=== PATIENT | male | born 1940 | race Caucasian/White ===

== ENCOUNTER 2019-12-24 20:59 | Inpatient (IN) | payer MEDICARE, BC ==
--- NOTE | 2019-12-24 22:36 | ER Document Report ---
ED Medical Screen (RME) - General Chief Complaint: Fall Injury Stated Complaint: FALL/WEAKNESS Time Seen by Provider: 12/24/19 22:27 Primary Care Provider: JIM BOYCE MD [Primary Care Provider] - Follow up as needed Mode of Arrival: Wheelchair Information source: Patient, Relative Notes: HPI; 79-year-old male presents to the emergency room with his daughter who s tates that patient had a trip and fall at home 6 days ago hitting his head. Daughter states he laid on the floor for several hours before anybody found him. Normally lives alone but states he has been unable to care for him self since the fall. Is weak. Complains of generalized fatigue. States saw primary care physician 2 days ago had COVID testing and labs. States cover testing is still pending. States a CT head was ordered but was told he cannot get 1 for at least a week. There has been no recent travel. No COVID-19 exposure. PE: Alert and oriented x3. Pale appearing. Mild distress noted. Lungs were clear to auscultation without rales, rhonchi, wheezes. Heart: Tachycardic without murmurs rubs or gallops. Unable to do full exam in triage. I have greeted and performed a rapid initial assessment of this patient. A comprehensive ED assessment and evaluation of the patient, analysis of test results and completion of the medical decision making process will be conducted by additional ED providers. I have specifically instructed the patient or family members with the patient to immediately return to any nursing staff should anything change in the patient's condition or with their chief complaint. TRAVEL OUTSIDE OF THE [place] IN LAST 30 DAYS: No - Related Data Allergies/Adverse Reactions: No Known Allergies Allergy (Unverified 05/12/13 13:03) Past Medical History - Past Medical History Cardiac Medical History: Reports: Hx Hypertension Denies: Hx Heart Attack Pulmonary Medical History: Denies: Hx Asthma Neurological Medical History: Denies: Hx Cerebrovascular Accident, Hx Seizures GI Medical History: Denies: Hx Hepatitis, Hx Hiatal Hernia, Hx Ulcer Infectious Medical History: Denies: Hx Hepatitis Past Surgical History: Denies: Hx Open Heart Surgery, Hx Pacemaker Physical Exam - Vital signs Vitals: Temp Pulse Resp BP Pulse Ox 99.2 F 114 H 16 117/66 94 12/24/19 21:31 12/24/19 21:31 12/24/19 21:31 12/24/19 21:31 12/24/19 21:31 Course - Vital Signs Vital signs: Temp Pulse Resp BP Pulse Ox 99.2 F 114 H 16 117/66 94 12/24/19 21:31 12/24/19 21:31 12/24/19 21:31 12/24/19 21:31 12/24/19 21:31 Doctor's Discharge - Discharge Referrals: JIM BOYCE MD [Primary Care Provider] - Follow up as needed
[2019-12-25 01:30] LABS: HEMATOCRIT 43.4 % (37.9-51.0); HEMOGLOBIN 15.2 g/dL (13.5-17.0); MEAN CORPUSCULAR HEMOGLOBIN 29.8 pg (27.0-33.4); MEAN CORPUSCULAR HGB CONC 35.1 g/dL (32.0-36.0); MEAN CORPUSCULAR VOLUME 85 fl (80-97); PLATELET COUNT 267 10^3/uL (150-450); RED BLOOD COUNT 5.11 10^6/uL (4.35-5.55); RED CELL DISTRIBUTION WIDTH 13.5 % (11.5-14.0); WHITE BLOOD COUNT 7.8 10^3/uL (4.0-10.5)
[2019-12-25 01:44] LABS: APPEARANCE,URINE SLIGHTLY-CLOUDY; BILIRUBIN,URINE NEGATIVE (NEGATIVE); COLOR,URINE AMBER; GLUCOSE, URINE NEGATIVE (NEGATIVE); KETONES,URINE 20 mg/dL (NEGATIVE); LEUKOCYTE ESTERASE,URINE NEGATIVE (NEGATIVE); NITRITE,URINE NEGATIVE (NEGATIVE); PROTEIN,URINE 30 mg/dL (NEGATIVE); URINE SPECIFIC GRAVITY 1.025; UROBILINOGEN,URINE NEGATIVE mg/dL (<2.0)
[2019-12-25 01:51] LABS: ALBUMIN 3.8 g/dL (3.5-5.0); ALKALINE PHOSPHATASE 57 U/L (38-126); ANION GAP 11 (5-19); ASPARTATE AMINO TRANSFERASE 51 U/L (17-59); BILIRUBIN,TOTAL 0.7 mg/dL (0.2-1.3); BLOOD UREA NITROGEN 19 mg/dL (7-20); CALCIUM 8.8 mg/dL (8.4-10.2); CARBON DIOXIDE 24 mmol/L (22-30); CHLORIDE 98 mmol/L (98-107); GLUCOSE 170 mg/dL (75-110); POTASSIUM 4.3 mmol/L (3.6-5.0); TOTAL PROTEIN 6.9 g/dL (6.3-8.2)
[2019-12-25 02:01] LABS: ABSOLUTE LYMPHOCYTES# (MANUAL) 0.9 10^3/uL (0.5-4.7); ABSOLUTE MONOCYTES # (MANUAL) 0.3 10^3/uL (0.1-1.4); BAND NEUTROPHILS % (MANUAL) 3 % (3-5); BASOPHILS % (MANUAL) 0 % (0-2); EOSINOPHILS % (MANUAL) 0 % (0-6); LYMPHOCYTES % (MANUAL) 11 % (13-45); MONOCYTES % (MANUAL) 4 % (3-13); SEGMENTED NEUTROPHILS % (MAN) 81 % (42-78); TOTAL CELLS COUNTED 100
[2019-12-25 02:04] LABS: PLATELET COMMENT ADEQUATE
--- NOTE | 2019-12-25 02:41 | RADIOLOGY REPORT (SQ) ---
CLINICAL HISTORY: head trauma. fell last Saturday COMPARISON: None. TECHNIQUE: CT HEAD WITHOUT IV CONTRAST on 12/25/2019 12:00 AM CDT This exam was performed according to our departmental dose-optimization program, which includes automated exposure control, adjustment of the mA and/or kV according to patient size and/or use of iterative reconstruction technique. FINDINGS: There is no acute hemorrhage, mass effect or midline shift. Bey-white differentiation is preserved. There is no hydrocephalus. There is no significant volume loss for age. The calvarium is intact. Orbits and globes are unremarkable. The paranasal sinuses are clear. Mastoid air cells are clear. IMPRESSION: No acute intracranial findings.
--- NOTE | 2019-12-25 02:43 | RADIOLOGY REPORT (SQ) ---
CLINICAL HISTORY: head trauma. fell last Saturday COMPARISON: None. TECHNIQUE: CT CERVICAL SPINE WITHOUT IV CONTRAST on 12/25/2019 12:00 AM CDT This exam was performed according to our departmental dose-optimization program, which includes automated exposure control, adjustment of the mA and/or kV according to patient size and/or use of iterative reconstruction technique. FINDINGS: There is no acute fracture. There is grade 1 anterolisthesis of C4 on C5. There is grade 1 anterolisthesis of C7 on T1. There is moderate right-sided and severe left-sided facet arthritis. There is moderate narrowing of the C3-4 disc. There is severe narrowing of the C5-6 and C6-7 discs. Vertebral body heights are preserved. Soft tissues are unremarkable. IMPRESSION: No acute fracture or subluxation.
[2019-12-25] MEDS ORDERED: NORMAL SALINE 1000 ML 1,000 ML IV ONE (05:04)
--- NOTE | 2019-12-25 05:07 | ER Document Report ---
ED General - General Chief Complaint: Fall Stated Complaint: FALL/WEAKNESS Time Seen by Provider: 12/24/19 22:27 Primary Care Provider: JIM BOYCE MD [NO LOCAL MD] - Follow up as needed Mode of Arrival: Wheelchair Notes: Patient is an 79-year-old male who comes emergency department for chief complaint of generalized weakness and a fall. Patient actually fell at home 6 days ago, he was on the floor several hours because of the spine itself before he was found. Daughter is with patient now, she states she has been staying with family, she states that tonight he was so weak he could not get up off the toilet. She states normally he ambulates around, lives by himself, drives, and goes to work. She states that she went to primary care with him 2 days ago, he did have COVID testing and labs because of generalized weakness, COVID testing is still pending, however he has not had any fever, cough, vomiting, or sick exposures. Patient is not immunocompromised although he does have a history of rheumatoid arthritis, he is on no treatment for this. Remaining medical history includes type 2 diabetes, hyperlipidemia, BPH status post surgery, GERD. No other medical history reported. Daughter states that primary care ordered a CAT scan of the head after his fall but that is not for approximately 1 week. Patient denies any current complaints other than generalized weakness and right knee pain after the fall. He denies headache, chest pain, shortness of breath, abdominal pain, dizziness. TRAVEL OUTSIDE OF THE [place] IN LAST 30 DAYS: No - Related Data Allergies/Adverse Reactions: No Known Allergies Allergy (Unverified 05/12/13 13:03) Past Medical History - General Information source: Patient, Relative - Social History Smoking Status: Never Smoker Frequency of alcohol use: None Lives with: Alone Family History: Reviewed & Not Pertinent Patient has homicidal ideation: No - Past Medical History Cardiac Medical History: Reports: Hx Hypertension Denies: Hx Heart Attack Pulmonary Medical History: Denies: Hx Asthma Neurological Medical History: Denies: Hx Cerebrovascular Accident, Hx Seizures Endocrine Medical History: Reports: Hx Diabetes Mellitus Type 2 GI Medical History: Reports: Hx Gastroesophageal Reflux Disease. Denies: Hx Hepatitis, Hx Hiatal Hernia, Hx Ulcer Infectious Medical History: Denies: Hx Hepatitis Past Surgical History: Denies: Hx Open Heart Surgery, Hx Pacemaker - Immunizations Hx Diphtheria, Pertussis, Tetanus Vaccination: Yes Review of Systems - Review of Systems Constitutional: See HPI EENT: No symptoms reported Cardiovascular: No symptoms reported Respiratory: No symptoms reported Gastrointestinal: No symptoms reported Genitourinary: No symptoms reported Male Genitourinary: No symptoms reported Musculoskeletal: See HPI Skin: No symptoms reported Hematologic/Lymphatic: No symptoms reported Neurological/Psychological: See HPI Physical Exam - Vital signs Vitals: Temp Pulse Resp BP Pulse Ox 99.2 F 114 H 16 117/66 94 12/24/19 21:12/24/19 21:31 12/24/19 21:31 12/24/19 21:12/24/19 21:31 - Notes Notes: GENERAL: Alert but slightly sluggish. Patient speaks in a whisper. HEAD: Normocephalic, atraumatic. EYES: Pupils equal, round, and reactive to light. Extraocular movements intact. ENT: Oral mucosa moist, tongue midline. Oropharynx unremarkable. Airway patent. NECK: Full range of motion. Supple. Trachea midline. No lymphadenopathy. LUNGS: Clear to auscultation bilaterally, no wheezes, rales, or rhonchi. No respiratory distress. Non-tender chest wall. HEART: Regular rate and rhythm. No murmur ABDOMEN: Soft, non-tender. Non-distended. Bowel sounds present in all 4 quadrants. GENITOURINARY: Deferred EXTREMITIES: Tender over the right knee anteriorly although range of motion is intact and there is no sign of trauma. Unremarkable otherwise. BACK: No signs of trauma. No cervical, thoracic, lumbar midline tenderness. No saddle anesthesia, normal distal neurovascular exam. Moves all extremities in full range of motion. NEUROLOGICAL: Alert and oriented x3. Normal speech. Cranial nerves II through XII grossly intact. Strength 5/5 in all extremities. PSYCH: Normal affect, normal mood. SKIN: Warm, dry, normal turgor. No rashes or lesions noted. Course - Re-evaluation Re-evalutation: Patient had delayed extensively due to lack of beds, patient was in a recliner upfront because he could not tolerate the chair and he has a lot of difficulty standing. However he does not have any complaints other than generalized weakness. He has no neurological deficits on my exam. Patient was noted to have hypoxia down to 91% consistently on monitoring in the room, he was placed on 2 L nasal cannula, this did increase to 95% on room air. He has no cough, lungs are clear, he does have tenderness over the right knee and an x-ray was performed this but shows no acute findings. Remaining work-up from triage reviewed including CBC, chemistry, troponin, urinalysis. Patient has been given IV fluids. CT of the head unremarkable. Chest x-ray shows suspected left basilar pneumonia. This is consistent with patient's abnormal weakness, hypoxia. Discussed with patient and daughter, patient will be discussed with hospitalist for admission. They state appreciation and agreement. Patient will be tested for COVID-19. Discussed with Kalina Tran NP, patient excepted to medical floor observation at this time. 12/25/19 07:50 Kathe, nursing toilet and laundry soap supervisor, contact me and stated patient had been tested at [facility] and those testing to be checked first, I did inform nursing staff - Vital Signs Vital signs: Temp Pulse Resp BP Pulse Ox 98.4 F 76 16 140/72 H 97 12/25/19 02:29 12/25/19 02:29 12/25/19 02:29 12/25/19 02:29 12/25/19 02:29 - Laboratory Result Diagrams: 12/25/19 01:12 12/25/19 01:12 Laboratory results interpreted by me: 12/25/19 12/25/19 12/25/19 01:04 01:12 01:12 Seg Neuts % (Manual) 81 H Lymphocytes % (Manual) 11 L Sodium 133.0 L Glucose 170 H Creatine Kinase Urine Protein 30 H Urine Ketones 20 H Urine Ascorbic Acid 40 H 12/25/19 01:12 Seg Neuts % (Manual) Lymphocytes % (Manual) Sodium Glucose Creatine Kinase 39 L Urine Protein Urine Ketones Urine Ascorbic Acid Discharge - Discharge Clinical Impression: Hypoxia, Weakness Pneumonia Qualifiers: Pneumonia type: due to unspecified organism Laterality: left Lung location: lower lobe of lung Qualified Code(s): J18.9 - Pneumonia, unspecified organism Condition: Stable Disposition: ADMITTED OBSERVATION Admitting Provider: Irina (Hospitalist) - Kalina Tran DETECTIVE INVESTIGATOR Unit Admitted: Medical Floor Referrals: JIM BOYCE MD [NO LOCAL MD] - Follow up as needed
[2019-12-25 05:32] LABS: VENOUS BLOOD BASE EXCESS -1.3 mmol/L; VENOUS BLOOD HCO3 23.3 mmol/L (20-32); VENOUS BLOOD PCO2 38.9 mmHg (35-63); VENOUS BLOOD PH 7.4 (7.30-7.42)
--- NOTE | 2019-12-25 06:33 | RADIOLOGY REPORT (SQ) ---
EXAM DESCRIPTION: XR KNEE 4 OR MORE VIEWS COMPLETED DATE/TME: 12/25/2019 05:04 CLINICAL HISTORY: 79 years, Male, fall, pain COMPARISON: None. NUMBER OF VIEWS: 4 TECHNIQUE: 4 views of the right knee LIMITATIONS: None. FINDINGS: Osteopenia. Negative for acute fracture or dislocation. No evidence for joint effusion. Moderate tricompartmental degenerative change IMPRESSION: Osteopenia with moderate tricompartmental degenerative change copyright 2010 [employer]- All Rights Reserved
--- NOTE | 2019-12-25 07:13 | RADIOLOGY REPORT (SQ) ---
CLINICAL HISTORY: weakness COMPARISON: None. TECHNIQUE: XR CHEST 1 VIEW 12/25/2019 4:54 AM CDT FINDINGS: Cardiac silhouette is normal in size. Difficult to exclude small left lower lobe consolidation. There is a trace left pleural effusion. There is no pneumothorax. There are no acute osseous findings. IMPRESSION: Difficult to exclude left basilar pneumonia.
[2019-12-25] MEDS ORDERED: CEFTRIAXONE 1 GM/D5W RTU 1 GM/50 ML RTUPB IV ONE (07:18)
[2019-12-25] MEDS ORDERED: AZITHROMYCIN INJ 500 MG VIAL IV ONE (07:18)
--- NOTE | 2019-12-25 07:47 | EKG REPORT ---
SEVERITY:- BORDERLINE ECG - SINUS RHYTHM : Confirmed by: Shady Clarke MD 25-Dec-2019 07:46:33
[2019-12-25] MEDS ORDERED: GUAIFENESIN SYRP 200 MG/10 ML UDC PO PRN (08:51)
[2019-12-25] MEDS ORDERED: ALBUTEROL SULFATE 0.083% NEB 2.5 MG/3 ML AMPUL NEB PRN (08:51)
[2019-12-25] MEDS ORDERED: ACETAMINOPHEN 325 MG TABLET PO PRN (08:51)
[2019-12-25] MEDS ORDERED: FAMOTIDINE 20 MG TABLET PO SCH (10:00)
[2019-12-25] MEDS: FINASTERIDE 5 MG TABLET PO SCH (11:02)
[2019-12-25] MEDS: PANTOPRAZOLE SODIUM 20 MG TABLET.DR PO SCH (11:02)
[2019-12-25] MEDS: ZINC SULFATE 220 MG CAPSULE PO SCH (11:02)
[2019-12-25] MEDS: CHOLECALCIFEROL (D3) 400 UNIT TABLET PO SCH (11:02)
[2019-12-25] MEDS: GUAIFENESIN 600 MG TABLET.SA PO SCH ×2 (11:02→22:25)
[2019-12-25] MEDS: ATORVASTATIN CALCIUM 10 MG TABLET PO SCH (11:03)
[2019-12-25] MEDS ORDERED: HYDRALAZINE HCL INJ/PF 20 MG/1 ML SDV IV PRN (11:49)
[2019-12-25] MEDS ORDERED: GLUCAGON,HUMAN RECOMB 1 MG INJ IM PRN (11:50)
[2019-12-25] MEDS ORDERED: DEXTROSE 40% GEL 15 GM TUBE PO PRN ×2 (11:50)
[2019-12-25] MEDS ORDERED: DEXTROSE 50%-WATER 25 GM/50 ML DISP.SYRIN IV PRN ×2 (11:50)
[2019-12-25] MEDS: ALBUTEROL SULFATE 0.083% NEB 2.5 MG/3 ML AMPUL NEB SCH ×2 (13:50→20:55)
--- NOTE | 2019-12-25 14:10 | PDOC H&P ---
History of Present Illness Admission Date/PCP: 12/25/19 10:17 VIVIANE TATE MD Patient complains of: Generalized weakness, falls History of Present Illness: JARON TARIQ JR is a 79 year old male with a past medical history significant for DM 2, HTN, HLD, BPH, GERD who presented to the emergency department today after a fall at home due to generalized weakness. Per patient, he has had felt significant fatigue and weakness for the last 2 weeks. He was seen by his PCP 1 week ago and has a pending COVID test. He denies fever, chills, dyspnea, cough, abdominal pain, nausea, vomiting, and diarrhea. Evaluation in the emergency department revealed Low-grade temp (99.2) tachycardia (HR 114), tachypnea (RR 33), and hypoxia while on room air. CBC revealed mild lymphocytosis (11), mild hyponatremia (NA 133), unremarkable urinalysis, COVID 19+, and chest x-ray demonstrating left basilar pneumonia. Due to patient's fall, he also had a head CT, C-spine CT, and right knee x-ray which were benign. He was provided IV azithromycin and Rocephin and referred to the hospitalist service for admission and management of the above-stated complaints and findings. Past Medical History Cardiac Medical History: Reports: Hyperlipidema, Hypertension Denies: Myocardial Infarction Pulmonary Medical History: Denies: Asthma Neurological Medical History: Denies: Seizures Endocrine Medical History: Reports: Diabetes Mellitus Type 2 Denies: Hypothyroidism Renal/ Medical History: Reports: None Malignancy Medical History: Reports: None GI Medical History: Reports: Gastroesophageal Reflux Disease Denies: Hepatitis, Hiatal Hernia Musculoskeltal Medical History: Reports: Arthritis Psychiatric Medical History: Reports: None Traumatic Medical History: Reports: None Hematology: Denies: Anemia, Sickle Cell Disease Infectious Medical History: Reports: None Past Surgical History Past Surgical History: Reports: Orthopedic Surgery - knee, Other - Prostate Denies: Pacemaker Social History Information Source: Patient Lives with: Alone Smoking Status: Never Smoker Electronic Cigarette use?: No Frequency of Alcohol Use: None Hx Recreational Drug Use: No Hx Prescription Drug Abuse: No - Advance Directive Resuscitation Status: Do Not Intubate Surrogate healthcare decision maker:: Patient's daughter, Vickie Toussaint, Family History Family History: Reviewed & Not Pertinent Parental Family History Reviewed: Yes Children Family History Reviewed: Yes Sibling(s) Family History Reviewed.: Yes Medication/Allergy Home Medications: Atorvastatin Calcium [Lipitor 10 mg Tablet] 10 mg PO DAILY 12/25/19 Finasteride [Proscar 5 mg Tablet] 5 mg PO DAILY 12/25/19 Metformin HCl [Metformin HCl ER] 1,000 mg PO DAILY 12/25/19 Omeprazole 20 mg PO .EVERY OTHER DAY 12/25/19 Allergies/Adverse Reactions: No Known Allergies Allergy (Unverified 05/12/13 13:03) Review of Systems Constitutional: PRESENT: fatigue, weakness. ABSENT: chills, fever(s), headache(s), weight gain, weight loss Eyes: ABSENT: visual disturbances Ears: ABSENT: hearing changes Cardiovascular: ABSENT: chest pain, dyspnea on exertion, edema, orthropnea, palpitations Respiratory: ABSENT: cough, hemoptysis Gastrointestinal: ABSENT: abdominal pain, constipation, diarrhea, hematemesis, hematochezia, nausea, vomiting Genitourinary: ABSENT: dysuria, hematuria Musculoskeletal: ABSENT: joint swelling Integumentary: ABSENT: rash, wounds Neurological: PRESENT: frequent falls. ABSENT: abnormal gait, abnormal speech, confusion, dizziness, focal weakness, syncope Psychiatric: ABSENT: anxiety, depression, homidical ideation, suicidal ideation Endocrine: ABSENT: cold intolerance, heat intolerance, polydipsia, polyuria Hematologic/Lymphatic: ABSENT: easy bleeding, easy bruising Physical Exam Vital Signs: Temp Pulse Resp BP Pulse Ox 98.6 F 76 30 H 161/91 H 96 12/25/19 10:58 12/25/19 02:29 12/25/19 09:00 12/25/19 08:01 12/25/19 09:00 Pulse Oximeter Continuous Start: 12/25/19 08:51 Freq: RTQ4 Status: Active Protocol: Document 12/25/19 11:12 LDA (Rec: 12/25/19 11:12 LDA [id number]) Pulse Oximetry Assessment Equipment Usage Equipment Standby Continuous SpO2 Machine # xx Additional RT Notes Other pt. in monitored bed Intake & Output 12/24/19 12/25/19 12/26/19 06:59 06:59 06:59 Intake Total 1000 50 Balance 1000 50 Weight 92.079 kg General appearance: PRESENT: mild distress, well-developed, well-nourished, other - Acutely ill-appearing Head exam: PRESENT: atraumatic, normocephalic Eye exam: PRESENT: conjunctiva pink, EOMI, PERRLA. ABSENT: scleral icterus Mouth exam: PRESENT: moist, tongue midline Respiratory exam: PRESENT: rhonchi - Bibasilar, symmetrical, tachypnea, other - Supplemental oxygen. ABSENT: rales, wheezes Cardiovascular exam: PRESENT: RRR, tachycardia. ABSENT: diastolic murmur, rubs, systolic murmur Vascular exam: PRESENT: normal capillary refill GI/Abdominal exam: PRESENT: normal bowel sounds, soft. ABSENT: distended, guarding, mass, organolmegaly, rebound, tenderness Rectal exam: PRESENT: deferred Extremities exam: PRESENT: full ROM. ABSENT: calf tenderness, clubbing, pedal edema Neurological exam: PRESENT: alert, awake, oriented to person, oriented to place, oriented to time, oriented to situation, CN II-XII grossly intact, other - Fatigued. ABSENT: motor sensory deficit Psychiatric exam: PRESENT: appropriate affect, normal mood. ABSENT: homicidal ideation, suicidal ideation Skin exam: PRESENT: dry, intact, warm. ABSENT: cyanosis, rash Results Laboratory Results: 12/25/19 01:12 12/25/19 01:12 12/25/19 12/25/19 12/25/19 01:04 01:12 01:12 WBC 7.8 RBC 5.11 Hgb 15.2 Hct 43.4 MCV 85 MCH 29.8 MCHC 35.1 RDW 13.5 Plt Count 267 Seg Neutrophils % Not Reportable VBG pH VBG pCO2 VBG HCO3 VBG Base Excess Sodium 133.0 L Potassium 4.3 Chloride 98 Carbon Dioxide 24 Anion Gap 11 BUN 19 Creatinine 0.95 Est GFR ( Amer) > 60 Glucose 170 H Lactic Acid Calcium 8.8 Total Bilirubin 0.7 AST 51 Alkaline Phosphatase 57 Total Protein 6.9 Albumin 3.8 Urine Color PATO Urine Appearance SLIGHTLY-CLOUDY Urine pH 6.0 Ur Specific [place] 1.025 Urine Protein 30 H Urine Glucose (UA) NEGATIVE Urine Ketones 20 H Urine Blood NEGATIVE Urine Nitrite NEGATIVE Ur Leukocyte Esterase NEGATIVE Urine WBC (Auto) 1 Urine RBC (Auto) 1 12/25/19 12/25/19 01:12 05:15 WBC RBC Hgb Hct MCV MCH MCHC RDW Plt Count Seg Neutrophils % VBG pH 7.40 VBG pCO2 38.9 VBG HCO3 23.3 VBG Base Excess -1.3 Sodium Potassium Chloride Carbon Dioxide Anion Gap BUN Creatinine Est GFR ( Amer) Glucose Lactic Acid 1.3 Calcium Total Bilirubin AST Alkaline Phosphatase Total Protein Albumin Urine Color Urine Appearance Urine pH Ur Specific [place] Urine Protein Urine Glucose (UA) Urine Ketones Urine Blood Urine Nitrite Ur Leukocyte Esterase Urine WBC (Auto) Urine RBC (Auto) 12/25/19 12/25/19 01:12 01:12 Creatine Kinase 39 L Troponin I < 0.012 Impressions: Cervical Spine CT 12/25/19 00:00 IMPRESSION: No acute fracture or subluxation. Head CT 12/25/19 00:00 IMPRESSION: No acute intracranial findings. Chest X-Ray 12/25/19 04:54 IMPRESSION: Difficult to exclude left basilar pneumonia. Knee X-Ray 12/25/19 05:04 IMPRESSION: Osteopenia with moderate tricompartmental degenerative change copyright 2011 [employer]- All Rights Reserved Assessment and Plan - Diagnosis (1) Pneumonia due to COVID-19 virus Is this a current diagnosis for this admission?: Yes Plan: Blood and sputum cultures are pending. D-dimer, Ferritin, LDH, CRP pending. Patient is admitted to the medical floor on continuous cardiac telemetry and pulse oximetry. He is empirically placed on IV azithromycin and Rocephin. Provided supplemental oxygen as needed to maintain saturations greater than 88%. Scheduled and as needed nebulizer treatments. Consider anticoagulation based on O2 needs and D-dimer results. Start Decadron Vitamin C, vitamin D, zinc and melatonin supplementation. Encourage pulmonary toilet. (2) HTN (hypertension) Is this a current diagnosis for this admission?: Yes Plan: Does not appear that the patient is on home antihypertensive therapy. We will provide IV hydralazine as needed for blood pressure control. Cardiac diet. Consider initiating oral antihypertensives (3) HLD (hyperlipidemia) Is this a current diagnosis for this admission?: Yes Plan: Continue home dose statin. Cardiac diet. (4) Diabetes Qualifiers: Diabetes mellitus type: type 2 Diabetes mellitus longterm insulin use: without longterm use Is this a current diagnosis for this admission?: Yes Plan: Holding oral medications while admitted. Accu-Cheks before meals and at bedtime with Humalog for sliding scale coverage. Hypoglycemia protocol in place.
[2019-12-25 14:46] LABS: PROTHROMBIN TIME 13.2 SEC (11.4-15.4)
[2019-12-25 14:49] LABS: D-DIMER 0.62 ug/mL (0.00-0.50)
[2019-12-25 15:08] LABS: C-REACTIVE PROTEIN 60.4 mg/L (<10.0)
[2019-12-25] MEDS: HEPARIN SOD (PORCINE) 5,000 UNIT/ML 1 ML VIAL SUBCUT SCH ×2 (15:31→22:25)
[2019-12-25] MEDS: DEXAMETHASONE SOD PHOSPHATE INJ 4 MG/1 ML VIAL IV SCH ×2 (15:31→22:28)
[2019-12-25] MEDS: INSULIN LISPRO 100 UNIT/ML 3 ML VIAL SUBCUT SCH ×2 (15:48→22:25)
[2019-12-25] MEDS ORDERED: METFORMIN HCL 500 MG TABLET PO SCH (17:00)
[2019-12-25] MEDS: ASCORBIC ACID 500 MG TABLET PO SCH (18:41)
[2019-12-25] MEDS: MELATONIN 3 MG TABLET PO SCH (22:25)
[2019-12-26] MEDS: ALBUTEROL SULFATE 0.083% NEB 2.5 MG/3 ML AMPUL NEB SCH ×4 (03:35→20:53)
[2019-12-26 05:17] LABS: HEMATOCRIT 39.9 % (37.9-51.0); HEMOGLOBIN 13.8 g/dL (13.5-17.0); MEAN CORPUSCULAR HEMOGLOBIN 29.1 pg (27.0-33.4); MEAN CORPUSCULAR HGB CONC 34.5 g/dL (32.0-36.0); MEAN CORPUSCULAR VOLUME 84 fl (80-97); PLATELET COUNT 246 10^3/uL (150-450); RED BLOOD COUNT 4.73 10^6/uL (4.35-5.55); RED CELL DISTRIBUTION WIDTH 13.7 % (11.5-14.0); WHITE BLOOD COUNT 5.9 10^3/uL (4.0-10.5)
[2019-12-26 05:35] LABS: ANION GAP 10 (5-19); BLOOD UREA NITROGEN 17 mg/dL (7-20); CALCIUM 8.3 mg/dL (8.4-10.2); CARBON DIOXIDE 21 mmol/L (22-30); CHLORIDE 102 mmol/L (98-107); GLUCOSE 192 mg/dL (75-110); POTASSIUM 4.4 mmol/L (3.6-5.0)
[2019-12-26 05:55] LABS: ABSOLUTE LYMPHOCYTES# (MANUAL) 0.3 10^3/uL (0.5-4.7); ABSOLUTE MONOCYTES # (MANUAL) 0.2 10^3/uL (0.1-1.4); BAND NEUTROPHILS % (MANUAL) 1 % (3-5); BASOPHILS % (MANUAL) 0 % (0-2); EOSINOPHILS % (MANUAL) 0 % (0-6); LYMPHOCYTES % (MANUAL) 5 % (13-45); MONOCYTES % (MANUAL) 4 % (3-13); SEGMENTED NEUTROPHILS % (MAN) 90 % (42-78); TOTAL CELLS COUNTED 100
[2019-12-26 05:56] LABS: BURR CELLS SLIGHT; PLATELET COMMENT ADEQUATE; PLATELET GIANT PRESENT; PLATELET LARGE PRESENT; POIKILOCYTOSIS SLIGHT
[2019-12-26] MEDS: HEPARIN SOD (PORCINE) 5,000 UNIT/ML 1 ML VIAL SUBCUT SCH ×3 (06:04→21:44)
[2019-12-26] MEDS: CEFTRIAXONE 1 GM/D5W RTU 1 GM/50 ML RTUPB IV SCH (08:37)
[2019-12-26] MEDS: INSULIN LISPRO 100 UNIT/ML 3 ML VIAL SUBCUT SCH ×4 (08:37→23:15)
[2019-12-26] MEDS: ASCORBIC ACID 500 MG TABLET PO SCH ×2 (10:00→17:14)
[2019-12-26] MEDS: FINASTERIDE 5 MG TABLET PO SCH (10:00)
[2019-12-26] MEDS: CHOLECALCIFEROL (D3) 400 UNIT TABLET PO SCH (10:00)
[2019-12-26] MEDS: ZINC SULFATE 220 MG CAPSULE PO SCH (10:00)
[2019-12-26] MEDS ORDERED: (PENDING PHARMACY ID) (Metformin Hcl [Metformin Hcl Er] 1,000 MG) PO SCH (10:00)
[2019-12-26] MEDS: ATORVASTATIN CALCIUM 10 MG TABLET PO SCH (10:00)
[2019-12-26] MEDS: DEXAMETHASONE SOD PHOSPHATE INJ 4 MG/1 ML VIAL IV SCH ×2 (10:00→21:44)
[2019-12-26] MEDS: GUAIFENESIN 600 MG TABLET.SA PO SCH ×2 (10:00→21:43)
[2019-12-26] MEDS: AZITHROMYCIN 500 MG in DEXTROSE 5%-WATER 250 ML IV SCH (10:01)
--- NOTE | 2019-12-26 12:27 | PDOC PROGRESS REPORT ---
Subjective Progress Note for:: 12/26/19 Subjective:: JARON TARIQ JR is a 79 year old male with a past medical history significant for DM 2, HTN, HLD, BPH, GERD who presented to the emergency department today after a fall at home due to generalized weakness. Per patient, he has had felt significant fatigue and weakness for the last 2 weeks. He was seen by his PCP 1 week ago and has a pending COVID test. He denies fever, chills, dyspnea, cough, abdominal pain, nausea, vomiting, and diarrhea. Evaluation in the emergency department revealed Low-grade temp (99.2) tachycardia (HR 114), tachypnea (RR 33), and hypoxia while on room air. CBC revealed mild lymphocytosis (11), mild hyponatremia (NA 133), unremarkable urinalysis, COVID 19+, and chest x-ray demonstrating left basilar pneumonia. Due to patient's fall, he also had a head CT, C-spine CT, and right knee x-ray which were benign. He was provided IV azithromycin and Rocephin and referred to the hospitalist service for admission and management of the above-stated complaints and findings. 12/26/2019. No acute events overnight. Patient comfortably said no apparent distress. Alert and oriented answers questions appropriately, denies any fever, chills, nausea, vomiting, diarrhea, constipation or any urinary symptoms. Patient is currently on 2 L nasal cannula, afebrile, could potentially be discharged home tomorrow if his O2 could be trended down. Reason For Visit: COVID (+),PNEUMONIA Physical Exam Vital Signs: Temp Pulse Resp BP Pulse Ox 97.7 F 59 L 20 127/76 H 92 12/26/19 03:16 12/26/19 07:00 12/26/19 03:16 12/26/19 03:16 12/26/19 12:00 Pulse Oximeter Continuous Start: 12/25/19 08:51 Freq: RTQ4 Status: Active Protocol: Document 12/26/19 12:00 CATIE (Rec: 12/26/19 12:01 CATIE [email or web address]) Pulse Oximetry Assessment Oxygen Saturation (92-100) 92 Oxygen Flow Rate (L/min) 2 Oxygen Delivery Method Nasal Cannula Fraction of Inspired Oxygen (FIO2) 28 Equipment Usage Equipment in Use Continuous SpO2 Machine # 6 Intake & Output 12/25/19 12/26/19 12/27/19 06:59 06:59 06:59 Intake Total 1000 50 50 Output Total 400 Balance 1000 -350 50 Weight 92.079 kg 90.9 kg General appearance: PRESENT: no acute distress, well-developed, well-nourished Head exam: PRESENT: atraumatic, normocephalic Respiratory exam: PRESENT: clear to auscultation lawrence. ABSENT: rales, rhonchi, wheezes GI/Abdominal exam: PRESENT: normal bowel sounds, soft. ABSENT: distended, guarding, mass, organolmegaly, rebound, tenderness Neurological exam: PRESENT: alert, awake, oriented to person, oriented to place, oriented to time, oriented to situation, CN II-XII grossly intact. ABSENT: motor sensory deficit Results Laboratory Results: 12/26/19 04:20 12/26/19 04:20 12/25/19 12/26/19 12/26/19 14:25 04:20 04:20 WBC 5.9 RBC 4.73 Hgb 13.8 Hct 39.9 MCV 84 MCH 29.1 MCHC 34.5 RDW 13.7 Plt Count 246 Seg Neutrophils % Not Reportable Sodium 133.4 L Potassium 4.4 Chloride 102 Carbon Dioxide 21 L Anion Gap 10 BUN 17 Creatinine 0.74 Est GFR ( Amer) > 60 Glucose 192 H Calcium 8.3 L Ferritin 904.00 H C-Reactive Protein 60.4 H 12/25/19 12/25/19 01:12 01:12 Creatine Kinase 39 L Troponin I < 0.012 Impressions: Cervical Spine CT 12/25/19 00:00 IMPRESSION: No acute fracture or subluxation. Head CT 12/25/19 00:00 IMPRESSION: No acute intracranial findings. Chest X-Ray 12/25/19 04:54 IMPRESSION: Difficult to exclude left basilar pneumonia. 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 Is tolerating p.o. intake. Complaining of generalized fatigue. COVID positive. CRP 60.4. 3904. LDH 242. D-dimer 0.62. Continue continuous cardiac telemetry and pulse oximetry, incentive spirometry, supplemental, pulmonary toileting. Day #2 of IV azithromycin and Rocephin. Day #2 IV of Decadron. Continue vitamin C, vitamin D, zinc and melatonin supplementation. (2) Diabetes Qualifiers: Diabetes mellitus type: type 2 Diabetes mellitus adjunct faculty for medical terminology insulin use: without adjunct faculty for medical terminology use Is this a current diagnosis for this admission?: Yes Plan: Holding oral medications while admitted. Accu-Cheks before meals and at bedtime with Humalog for sliding scale coverage. Hypoglycemia protocol in place. (3) HLD (hyperlipidemia) Is this a current diagnosis for this admission?: Yes Plan: Continue home dose statin. Cardiac diet. (4) HTN (hypertension) Is this a current diagnosis for this admission?: Yes Plan: Does not appear that the patient is on home antihypertensive therapy. We will provide IV hydralazine as needed for blood pressure control. Cardiac diet. Consider initiating oral antihypertensives
[2019-12-26] MEDS: LISINOPRIL 5 MG TABLET PO SCH (14:32)
[2019-12-26] MEDS: MELATONIN 3 MG TABLET PO SCH (21:43)
[2019-12-27] MEDS: ALBUTEROL SULFATE 0.083% NEB 2.5 MG/3 ML AMPUL NEB SCH ×4 (02:44→20:50)
[2019-12-27] MEDS: HEPARIN SOD (PORCINE) 5,000 UNIT/ML 1 ML VIAL SUBCUT SCH ×3 (05:03→22:12)
[2019-12-27] MEDS: CEFTRIAXONE 1 GM/D5W RTU 1 GM/50 ML RTUPB IV SCH (08:38)
[2019-12-27] MEDS: INSULIN LISPRO 100 UNIT/ML 3 ML VIAL SUBCUT SCH ×4 (08:38→22:12)
[2019-12-27] MEDS: ASCORBIC ACID 500 MG TABLET PO SCH ×2 (09:48→17:00)
[2019-12-27] MEDS: PANTOPRAZOLE SODIUM 20 MG TABLET.DR PO SCH (09:48)
[2019-12-27] MEDS: CHOLECALCIFEROL (D3) 400 UNIT TABLET PO SCH (09:48)
[2019-12-27] MEDS: ZINC SULFATE 220 MG CAPSULE PO SCH (09:48)
[2019-12-27] MEDS: LISINOPRIL 5 MG TABLET PO SCH (09:48)
[2019-12-27] MEDS: DEXAMETHASONE SOD PHOSPHATE INJ 4 MG/1 ML VIAL IV SCH ×2 (09:49→22:12)
[2019-12-27] MEDS: GUAIFENESIN 600 MG TABLET.SA PO SCH ×2 (09:49→22:12)
[2019-12-27] MEDS: AZITHROMYCIN 500 MG in DEXTROSE 5%-WATER 250 ML IV SCH (09:49)
[2019-12-27] MEDS: ATORVASTATIN CALCIUM 10 MG TABLET PO SCH (09:49)
[2019-12-27] MEDS: FINASTERIDE 5 MG TABLET PO SCH (09:49)
--- NOTE | 2019-12-27 12:12 | PDOC PROGRESS REPORT ---
Subjective Progress Note for:: 12/27/19 Subjective:: JARON TARIQ JR is a 79 year old male with a past medical history significant for DM 2, HTN, HLD, BPH, GERD who presented to the emergency department today after a fall at home due to generalized weakness. Per patient, he has had felt significant fatigue and weakness for the last 2 weeks. He was seen by his PCP 1 week ago and has a pending COVID test. He denies fever, chills, dyspnea, cough, abdominal pain, nausea, vomiting, and diarrhea. Evaluation in the emergency department revealed Low-grade temp (99.2) tachycardia (HR 114), tachypnea (RR 33), and hypoxia while on room air. CBC revealed mild lymphocytosis (11), mild hyponatremia (NA 133), unremarkable urinalysis, COVID 19+, and chest x-ray demonstrating left basilar pneumonia. Due to patient's fall, he also had a head CT, C-spine CT, and right knee x-ray which were benign. He was provided IV azithromycin and Rocephin and referred to the hospitalist service for admission and management of the above-stated complaints and findings. 12/26/2019. No acute events overnight. Patient comfortably said no apparent distress. Alert and oriented answers questions appropriately, denies any fever, chills, nausea, vomiting, diarrhea, constipation or any urinary symptoms. Patient is currently on 2 L nasal cannula, afebrile, could potentially be discharged home tomorrow if his O2 could be trended down. 12/27/2019. No acute events overnight. Patient comfortably standing up in distress on 2 L nasal cannula. Patient has been afebrile and has not had any leukocytosis, patient will very anxious to be discharged home. I ambulated patient inside his room with no oxygen patient able to ambulate without assistance, however his SPO2 drops to high 89s upon ambulation but recovers to low 90s. I talked to her daughter Vickie who is a nurse and updated her about her father's status. Plan was to repeat chest x-ray if if it had improved since admission patient could potentially be discharged home today. Unfortunately chest x-ray shows left lower lobe consolidation unchanged from admission. Patie nt denies any fever, chills, nausea, vomiting, diarrhea, constipation or enuresis. P.o. tolerant having normal bowel and bladder movement. If patient still doing well by tomorrow he could potentially be discharged home. I talked to Vickie his daughter who agrees with the plan, they have already arranged a place for him to go home and quarantine himself. Reason For Visit: COVID (+),PNEUMONIA Physical Exam Vital Signs: Temp Pulse Resp BP Pulse Ox 97.9 F 62 16 150/82 H 93 12/27/19 07:59 12/27/19 08:03 12/27/19 08:03 12/27/19 07:59 12/27/19 08:03 Pulse Oximeter Continuous Start: 12/25/19 08:51 Freq: RTQ4 Status: Active Protocol: Document 12/27/19 08:03 JDR (Rec: 12/27/19 08:13 J [email or web address]) Pulse Oximetry Assessment Oxygen Saturation (92-100) 93 Oxygen Flow Rate (L/min) 2 Oxygen Delivery Method Nasal Cannula Fraction of Inspired Oxygen (FIO2) 28 Equipment Usage Equipment in Use Continuous SpO2 Machine # 6 Intake & Output 12/26/19 12/27/19 12/28/19 06:59 06:59 06:59 Intake Total 50 1095 300 Output Total 400 500 Balance -350 595 300 Weight 90.9 kg 90.6 kg General appearance: PRESENT: no acute distress, well-developed, well-nourished Head exam: PRESENT: atraumatic, normocephalic Respiratory exam: PRESENT: clear to auscultation lawrence. ABSENT: rales, rhonchi, wheezes Cardiovascular exam: PRESENT: RRR. ABSENT: diastolic murmur, rubs, systolic murmur GI/Abdominal exam: PRESENT: normal bowel sounds, soft. ABSENT: distended, guarding, mass, organolmegaly, rebound, tenderness Neurological exam: PRESENT: alert, awake, oriented to person, oriented to place, oriented to time, oriented to situation, CN II-XII grossly intact. ABSENT: motor sensory deficit Results Laboratory Results: 12/26/19 04:20 12/26/19 04:20 12/25/19 12/25/19 01:12 01:12 Creatine Kinase 39 L Troponin I < 0.012 Impressions: Cervical Spine CT 12/25/19 00:00 IMPRESSION: No acute fracture or subluxation. Head CT 12/25/19 00:00 IMPRESSION: No acute intracranial findings. 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 Is tolerating p.o. intake. Complaining of generalized fatigue. COVID positive. CRP 60.4. 3904. LDH 242. D-dimer 0.62. Continue continuous cardiac telemetry and pulse oximetry, incentive spirometry, supplemental, pulmonary toileting. Day #3 of IV azithromycin and Rocephin. Day #3 IV of Decadron. Continue vitamin C, vitamin D, zinc and melatonin supplementation. (2) Diabetes Qualifiers: Diabetes mellitus type: type 2 Diabetes mellitus mcc insulin use: without superintendent container terminal use Is this a current diagnosis for this admission?: Yes Plan: Holding oral medications while admitted. Accu-Cheks before meals and at bedtime with Humalog for sliding scale coverage. Hypoglycemia protocol in place. (3) HLD (hyperlipidemia) Is this a current diagnosis for this admission?: Yes Plan: Continue home dose statin. Cardiac diet. (4) HTN (hypertension) Is this a current diagnosis for this admission?: Yes Plan: Does not appear that the patient is on home antihypertensive therapy. We will provide IV hydralazine as needed for blood pressure control. Cardiac diet. Consider initiating oral antihypertensives
--- NOTE | 2019-12-27 13:09 | RADIOLOGY REPORT (SQ) ---
EXAM DESCRIPTION: CHEST SINGLE VIEW IMAGES COMPLETED DATE/TIME: 12/27/2019 9:34 am REASON FOR STUDY: hypoxia COMPARISON: 12/25/2019 EXAM PARAMETERS: NUMBER OF VIEWS: One view. TECHNIQUE: Single frontal radiographic view of the chest acquired. RADIATION DOSE: NA LIMITATIONS: None. FINDINGS: LUNGS AND PLEURA: Ill-defined left basilar opacification probably a combination of atelect asis/consolidation and left effusion. The right lung remains clear. Lungs are hyperinflated. Biapi geovanny pleural scarring. MEDIASTINUM AND HILAR STRUCTURES: No masses. Contour normal. HEART AND VASCULAR STRUCTURES: Heart normal in size. Normal vasculature. BONES: No acute findings. HARDWARE: None in the chest. OTHER: No other significant finding. IMPRESSION: Left basilar opacity may represent combination of atelectasis/consolidation and left eff usion. TECHNICAL DOCUMENTATION: JOB ID: [id number] 2010 [employer]- All Rights Reserved Reading location - IP/workstation name: [email or web address]
[2019-12-27] MEDS: MELATONIN 3 MG TABLET PO SCH (22:12)
[2019-12-28] MEDS: ALBUTEROL SULFATE 0.083% NEB 2.5 MG/3 ML AMPUL NEB SCH ×2 (05:17→08:09)
[2019-12-28] MEDS: HEPARIN SOD (PORCINE) 5,000 UNIT/ML 1 ML VIAL SUBCUT SCH (05:37)
[2019-12-28 07:32] LABS: HEMATOCRIT 39.9 % (37.9-51.0); HEMOGLOBIN 13.5 g/dL (13.5-17.0); MEAN CORPUSCULAR HEMOGLOBIN 28.7 pg (27.0-33.4); MEAN CORPUSCULAR HGB CONC 33.8 g/dL (32.0-36.0); MEAN CORPUSCULAR VOLUME 85 fl (80-97); PLATELET COUNT 318 10^3/uL (150-450); RED CELL DISTRIBUTION WIDTH 13.2 % (11.5-14.0); WHITE BLOOD COUNT 10.7 10^3/uL (4.0-10.5)
[2019-12-28] MEDS: INSULIN LISPRO 100 UNIT/ML 3 ML VIAL SUBCUT SCH ×2 (07:37→12:27)
[2019-12-28 08:00] LABS: ANION GAP 10 (5-19); BLOOD UREA NITROGEN 19 mg/dL (7-20); CALCIUM 8.2 mg/dL (8.4-10.2); CARBON DIOXIDE 21 mmol/L (22-30); CHLORIDE 102 mmol/L (98-107); GLUCOSE 254 mg/dL (75-110); POTASSIUM 4.3 mmol/L (3.6-5.0)
[2019-12-28 08:11] LABS: ABSOLUTE LYMPHOCYTES# (MANUAL) 0.3 10^3/uL (0.5-4.7); ABSOLUTE MONOCYTES # (MANUAL) 1.1 10^3/uL (0.1-1.4); BASOPHILS % (MANUAL) 0 % (0-2); EOSINOPHILS % (MANUAL) 0 % (0-6); LYMPHOCYTES % (MANUAL) 3 % (13-45); MONOCYTES % (MANUAL) 10 % (3-13); SEGMENTED NEUTROPHILS % (MAN) 87 % (42-78); TOTAL CELLS COUNTED 100
[2019-12-28 08:15] LABS: PLATELET COMMENT ADEQUATE; PLATELET LARGE PRESENT; RBC MORPHOLOGY COMMENT NORMO-CYTIC/CHROMIC
[2019-12-28 09:46] VITALS: BP 140/72
[2019-12-28] MEDS ORDERED: GUAIFENESIN 600 MG TABLET.SA PO SCH (10:00)
[2019-12-28] MEDS: LISINOPRIL 5 MG TABLET PO SCH (10:04)
[2019-12-28] MEDS: CHOLECALCIFEROL (D3) 400 UNIT TABLET PO SCH (10:04)
[2019-12-28] MEDS: CEFTRIAXONE 1 GM/D5W RTU 1 GM/50 ML RTUPB IV SCH ×2 (10:04→10:22)
[2019-12-28] MEDS: FINASTERIDE 5 MG TABLET PO SCH (10:05)
[2019-12-28] MEDS: ZINC SULFATE 220 MG CAPSULE PO SCH (10:05)
[2019-12-28] MEDS: ASCORBIC ACID 500 MG TABLET PO SCH (10:05)
[2019-12-28] MEDS: ATORVASTATIN CALCIUM 10 MG TABLET PO SCH (10:05)
[2019-12-28] MEDS: DEXAMETHASONE SOD PHOSPHATE INJ 4 MG/1 ML VIAL IV SCH (10:22)
[2019-12-28] MEDS: AZITHROMYCIN 500 MG in DEXTROSE 5%-WATER 250 ML IV SCH (10:22)
--- NOTE | 2019-12-28 16:47 | PDOC DISCHARGE SUMMARY ---
Impression - Admit/DC Date/PCP Admission Date/Primary Care Provider: 12/25/19 10:17 VIVIANE TATE MD Discharge Date: 12/28/19 - Discharge Diagnosis (1) Pneumonia due to COVID-19 virus Is this a current diagnosis for this admission?: Yes (2) Diabetes Is this a current diagnosis for this admission?: Yes (3) HLD (hyperlipidemia) Is this a current diagnosis for this admission?: Yes (4) HTN (hypertension) Is this a current diagnosis for this admission?: Yes - Additional Information Resuscitation Status: Do Not Intubate Discharge Diet: Cardiac Discharge Activity: Activity As Tolerated, Balance Activity w/Rest [facility]: [facility] [Outside] VIVIANE TATE MD [Primary Care Provider] - JIM BOYCE MD [NO LOCAL MD] - Follow up as needed Prescriptions: Azithromycin 250 mg PO DAILY 1 Days #1 tablet Lisinopril [Zestril] 2.5 mg PO DAILY 30 Days #30 tablet Home Medications: Atorvastatin Calcium [Lipitor 10 mg Tablet] 10 mg PO DAILY 12/25/19 Finasteride [Proscar 5 mg Tablet] 5 mg PO DAILY 12/25/19 Metformin HCl [Metformin HCl ER] 1,000 mg PO DAILY 12/25/19 Omeprazole 20 mg PO .EVERY OTHER DAY 12/25/19 Azithromycin 250 mg PO DAILY 1 Days #1 tablet 12/28/19 Lisinopril [Zestril] 2.5 mg PO DAILY 30 Days #30 tablet 12/28/19 History of Present Illiness History of Present Illness: JARON TARIQ JR is a 79 year old male with a past medical history significant for DM 2, HTN, HLD, BPH, GERD who presented to the emergency department today after a fall at home due to generalized weakness. Per patient, he has had felt significant fatigue and weakness for the last 2 weeks. He was seen by his PCP 1 week ago and has a pending COVID test. He denies fever, chills, dyspnea, cough, abdominal pain, nausea, vomiting, and diarrhea. Evaluation in the emergency department revealed Low-grade temp (99.2) tachycardia (HR 114), tachypnea (RR 33), and hypoxia while on room air. CBC revealed mild lymphocytosis (11), mild hyponatremia (NA 133), unremarkable urinalysis, COVID 19+, and chest x-ray demonstrating left basilar pneumonia. Due to patient's fall, he also had a head CT, C-spine CT, and right knee x-ray which were benign. He was provided IV azithromycin and Rocephin and referred to the hospitalist service for admission and management of the above-stated complaints and findings. Hospital Course Hospital Course: (1) Pneumonia due to COVID-19 virus COVID positive. CRP 60.4. 3904. LDH 242. D-dimer 0.62. Admitted to IMCU,cardiac telemetry and pulse oximetry, incentive spirometry, supplemental, pulmonary toileting. Deceived 4 days of IV azithromycin and Rocephin. Deceived 4 days of IV Decadron. Was a started on vitamin C, vitamin D, zinc and melatonin supplementation. Patient remained very stable. WBC WNL. Afebrile. SPO2 WNL on 2 L. Alert, awake, oriented x3. In no apparent distress. Patient was ambulated and noticed to drop his oxygen to 89 and recovered back to low 90s. Talk to her daughter Vickie who is a nurse on 2 occasions, and they said they would be to take care of him at home. Patient was extensively advised to come back to ED reevaluate if he develops any fever or if his symptoms gets worse. P.o. tolerant, ambulatory, denies any fever, chills, nausea, vomiting, diarrhea, constipation or any urinary symptoms. Was discharged on home health, home PT home OT, supplemental oxygen. (2) Diabetes Oral hypoglycemics held. Restarted on Accu-Cheks before meals and at bedtime with Humalog for sliding scale coverage. Hypoglycemia protocol in place. Advised to resume his home meds upon discharge. (3) HLD (hyperlipidemia) Doomed home meds. Continue home dose statin. (4) HTN (hypertension) Does not appear that the patient is on home antihypertensive therapy. Likely worsened due to steroids. Was started on low-dose lisinopril and PRN IV hydralazine. Patient and daughter were both advised to regularly checking his BP and follow- up with PCP. Physical Exam Vital Signs: Temp Pulse Resp BP Pulse Ox 97.4 F 64 16 140/72 H 95 12/28/19 09:43 12/28/19 09:43 12/28/19 09:43 12/28/19 09:43 12/28/19 09:43 Pulse Oximeter Continuous Start: 12/25/19 08:51 Freq: RTQ4 Status: Discharge Protocol: Document 12/28/19 12:00 CATIE (Rec: 12/28/19 12:34 [email or web address] [email or web address]) Pulse Oximetry Assessment Equipment Usage Equipment Standby Continuous SpO2 Machine # 6 Intake & Output 12/27/19 12/28/19 12/29/19 06:59 06:59 06:59 Intake Total 1095 1535 360 Output Total 500 200 Balance 595 1335 360 Weight 90.6 kg 90.6 kg General appearance: PRESENT: no acute distress, well-developed, well-nourished Head exam: PRESENT: atraumatic, normocephalic Respiratory exam: PRESENT: clear to auscultation lawrence. ABSENT: rales, rhonchi, wheezes Cardiovascular exam: PRESENT: RRR. ABSENT: diastolic murmur, rubs, systolic murmur GI/Abdominal exam: PRESENT: normal bowel sounds, soft. ABSENT: distended, guarding, mass, organolmegaly, rebound, tenderness Extremities exam: PRESENT: full ROM. ABSENT: calf tenderness, clubbing, pedal edema Neurological exam: PRESENT: alert, awake, oriented to person, oriented to place, oriented to time, oriented to situation, CN II-XII grossly intact. ABSENT: motor sensory deficit Skin exam: PRESENT: dry, intact, warm. ABSENT: cyanosis, rash Results Laboratory Results: WBC 10.7 10^3/uL (4.0-10.5) H 12/28/19 06:45 RBC 4.70 10^6/uL (4.35-5.55) 12/28/19 06:45 Hgb 13.5 g/dL (13.5-17.0) 12/28/19 06:45 Hct 39.9 % (37.9-51.0) 12/28/19 06:45 MCV 85 fl (80-97) 12/28/19 06:45 MCH 28.7 pg (27.0-33.4) 12/28/19 06:45 MCHC 33.8 g/dL (32.0-36.0) 12/28/19 06:45 RDW 13.2 % (11.5-14.0) 12/28/19 06:45 Plt Count 318 10^3/uL (150-450) 12/28/19 06:45 Lymph % (Auto) Not Reportable 12/28/19 06:45 [place] % (Auto) Not Reportable 12/28/19 06:45 Eos % (Auto) Not Reportable 12/28/19 06:45 Baso % (Auto) Not Reportable 12/28/19 06:45 Absolute Neuts (auto) Not Reportable 12/28/19 06:45 Absolute Lymphs (auto) Not Reportable 12/28/19 06:45 Absolute Monos (auto) Not Reportable 12/28/19 06:45 Absolute Eos (auto) Not Reportable 12/28/19 06:45 Absolute Basos (auto) Not Reportable 12/28/19 06:45 Total Counted 100 12/28/19 06:45 Seg Neutrophils % Not Reportable 12/28/19 06:45 Seg Neuts % (Manual) 87 % (42-78) H 12/28/19 06:45 Band Neutrophils % 1 % (3-5) L 12/26/19 04:20 Lymphocytes % (Manual) 3 % (13-45) L 12/28/19 06:45 Atypical Lymphs % 1 % (0) 12/25/19 01:12 Monocytes % (Manual) 10 % (3-13) 12/28/19 06:45 Eosinophils % (Manual) 0 % (0-6) 12/28/19 06:45 Basophils % (Manual) 0 % (0-2) 12/28/19 06:45 Abs Neuts (Manual) 9.3 10^3/uL (1.7-8.2) H 12/28/19 06:45 Abs Lymphs (Manual) 0.3 10^3/uL (0.5-4.7) L 12/28/19 06:45 Abs Monocytes (Manual) 1.1 10^3/uL (0.1-1.4) 12/28/19 06:45 Absolute Eos (Manual) 0.0 10^3/uL (0.0-0.6) 12/28/19 06:45 Abs Basophils (Manual) 0.0 10^3/uL (0.0-0.2) 12/28/19 06:45 Large Platelets PRESENT 12/28/19 06:45 Giant Platelets PRESENT 12/26/19 04:20 Platelet Comment ADEQUATE 12/28/19 06:45 Poikilocytosis SLIGHT 12/26/19 04:20 [place] Cells SLIGHT 12/26/19 04:20 RBC Morph Comment NORMO-CYTIC/CHROMIC 12/28/19 06:45 PT 13.2 SEC (11.4-15.4) 12/25/19 14:25 INR 1.00 12/25/19 14:25 D-Dimer 0.62 ug/mL (0.00-0.50) H 12/25/19 14:25 VBG pH 7.40 (7.30-7.42) 12/25/19 05:15 VBG pCO2 38.9 mmHg (35-63) 12/25/19 05:15 VBG HCO3 23.3 mmol/L (20-32) 12/25/19 05:15 VBG Base Excess -1.3 mmol/L 12/25/19 05:15 Sodium 132.6 mmol/L (137-145) L 12/28/19 06:45 Potassium 4.3 mmol/L (3.6-5.0) 12/28/19 06:45 Chloride 102 mmol/L (98-107) 12/28/19 06:45 Carbon Dioxide 21 mmol/L (22-30) L 12/28/19 06:45 Anion Gap 10 (5-19) 12/28/19 06:45 BUN 19 mg/dL (7-20) 12/28/19 06:45 Creatinine 0.89 mg/dL (0.52-1.25) 12/28/19 06:45 Est GFR ( Amer) > 60 (>60) 12/28/19 06:45 Est GFR (MDRD) Non-Af > 60 (>60) 12/28/19 06:45 Glucose 254 mg/dL (75-110) H 12/28/19 06:45 POC Glucose 227 mg/dL (70-110) H 12/28/19 10:45 Lactic Acid 1.3 mmol/L (0.7-2.1) 12/25/19 01:12 Calcium 8.2 mg/dL (8.4-10.2) L 12/28/19 06:45 Ferritin 904.00 ng/mL (17.9-464.0) H 12/25/19 14:25 Total Bilirubin 0.7 mg/dL (0.2-1.3) 12/25/19 01:12 Direct Bilirubin 0.0 mg/dL (0.0-0.4) 12/25/19 01:12 Neonat Total Bilirubin Not Reportable 12/25/19 01:12 Neonat Direct Bilirubin Not Reportable 12/25/19 01:12 Neonat Indirect Bili Not Reportable 12/25/19 01:12 AST 51 U/L (17-59) 12/25/19 01:12 ALT 30 U/L (<50) 12/25/19 01:12 Alkaline Phosphatase 57 U/L (38-126) 12/25/19 01:12 Lactate Dehydrogenase 242 U/L (120-246) 12/25/19 14:25 Creatine Kinase 39 U/L (55-170) L 12/25/19 01:12 Troponin I < 0.012 ng/mL 12/25/19 01:12 C-Reactive Protein 60.4 mg/L (<10.0) H 12/25/19 14:25 Total Protein 6.9 g/dL (6.3-8.2) 12/25/19 01:12 Albumin 3.8 g/dL (3.5-5.0) 12/25/19 01:12 Urine Color PATO 12/25/19 01:04 Urine Appearance SLIGHTLY-CLOUDY 12/25/19 01:04 Urine pH 6.0 (5.0-9.0) 12/25/19 01:04 Ur Specific [place] 1.025 12/25/19 01:04 Urine Protein 30 mg/dL (NEGATIVE) H 12/25/19 01:04 Urine Glucose (UA) NEGATIVE mg/dL (NEGATIVE) 12/25/19 01:04 Urine Ketones 20 mg/dL (NEGATIVE) H 12/25/19 01:04 Urine Blood NEGATIVE (NEGATIVE) 12/25/19 01:04 Urine Nitrite NEGATIVE (NEGATIVE) 12/25/19 01:04 Urine Bilirubin NEGATIVE (NEGATIVE) 12/25/19 01:04 Urine Urobilinogen NEGATIVE mg/dL (<2.0) 12/25/19 01:04 Ur Leukocyte Esterase NEGATIVE (NEGATIVE) 12/25/19 01:04 Urine WBC (Auto) 1 /HPF 12/25/19 01:04 Urine RBC (Auto) 1 /HPF 12/25/19 01:04 Squamous Epi Cells Auto 1 /HPF 12/25/19 01:04 Urine Mucus (Auto) MANY /LPF 12/25/19 01:04 Urine Ascorbic Acid 40 (NEGATIVE) H 12/25/19 01:04 SARS-CoV-2 (PCR) POSITIVE (NEGATIVE) H 12/25/19 07:25 12/25/19 01:12 Troponin I < 0.012 Impressions: Cervical Spine CT 12/25/19 00:00 IMPRESSION: No acute fracture or subluxation. Head CT 12/25/19 00:00 IMPRESSION: No acute intracranial findings. Chest X-Ray 12/25/19 04:54 IMPRESSION: Difficult to exclude left basilar pneumonia. Knee X-Ray 12/25/19 05:04 IMPRESSION: Osteopenia with moderate tricompartmental degenerative change copyright 2011 [employer]- All Rights Reserved Chest X-Ray 12/27/19 00:00 IMPRESSION: Left basilar opacity may represent combination of atelectasis/consolidation and left effusion. Stroke Is this a Stroke Patient?: No Acute Heart Failure - Is this a Heart Failure Patient?: No
== END 2019-12-28 13:21 | disposition home health service (06) | DRG 177 ==
LOC: ER 20:59 → EH 12-25 07:55 → OBSVTOIN 12-25 10:17 → 3N 12-25 21:44
PROVIDERS: ADMIT Hospitalist; ATTEND Internal Medicine
DX: U07.1 COVID-19 (principal); J12.89 Other viral pneumonia; E87.1 Hypo-osmolality and hyponatremia; E11.9 Type 2 diabetes mellitus without complications; E78.5 Hyperlipidemia, unspecified; I10 Essential (primary) hypertension; N40.0 Benign prostatic hyperplasia without lower urinary tract symptoms; K21.9 Gastro-esophageal reflux disease without esophagitis; Z79.84 Long term (current) use of oral hypoglycemic drugs; Z79.899 Other long term (current) drug therapy; Z91.81 History of falling
CPT/HCPCS: 36415; 70450; 71045; 72125; 80048; 80053; 81001; 82550; 82728; 82803; 82962; 83605; 83615; 84484; 85025; 85379; 85610; 86140; 87040; 87635; 93005; 93010; 94640; 94762; C9803; G0378; J0360; J0456; J0696; J1100; J1644; J1815; J3490; J7030; J7060